=== PATIENT | female | born 1990 | race Caucasian/White ===

== ENCOUNTER → 2024-02-13 08:56 | Outpatient (REF) | payer OTHER, SELFPAY | LOC: RAD 08:56 | PROVIDERS: ATTENDING PHYSICIAN Nurse Practitioner Family; FAMILY PHYSICIAN Internal Medicine | DX: Z32.01 Encounter for pregnancy test, result positive (principal) | CPT/HCPCS: 76801; 76817 ==

== ENCOUNTER → 2024-03-18 10:16 | Outpatient (REF) | payer OTHER, SELFPAY | LOC: PNTC 10:16 | PROVIDERS: ATTENDING PHYSICIAN Student in an Organized Health Care Education/Training Program | DX: Z36.0 Encounter for antenatal screening for chromosomal anomalies (principal); Z36.82 Encounter for antenatal screening for nuchal translucency | CPT/HCPCS: 76801; 76813 ==

== ENCOUNTER → 2024-05-06 09:23 | Outpatient (REF) | payer OTHER, SELFPAY | LOC: PNTC 09:23 | PROVIDERS: ATTENDING PHYSICIAN Student in an Organized Health Care Education/Training Program | DX: Z36.0 Encounter for antenatal screening for chromosomal anomalies (principal) | CPT/HCPCS: 76805 ==

== ENCOUNTER → 2024-09-29 09:22 | Outpatient (REF) | payer OTHER, SELFPAY | LOC: PNTC 09:22 | PROVIDERS: ATTENDING PHYSICIAN Student in an Organized Health Care Education/Training Program | DX: O48.0 Post-term pregnancy (principal) | CPT/HCPCS: 59025; 76815 ==

== ENCOUNTER 2024-10-02 19:40 | Inpatient (IN) | payer OTHER, SELFPAY ==
[2024-10-02 19:50] VITALS: BMI 31.6
[2024-10-02 20:12] VITALS: BP 127/96
[2024-10-02] MEDS: LR 1000 IV (20:14)
[2024-10-02 20:31] LABS: Hematocrit 35.9 % (37.0-47.0); Hemoglobin 12.6 g/dL (12.0-16.0); Mean Corp Hgb Conc. 35.1 g/dL (33.0-37.0); Mean Corpuscular Volume 84.9 fL (81.0-99.0); Nucleated Red Blood Cells % 0 %; Platelet Count 190 10^3/uL (130-400); Red Cell Dist. Width 12.9 % (11.5-14.5)
[2024-10-02 21:58] LABS: ALT (SGPT) 18 U/L (0-35); AST (SGOT) 27 U/L (14-36); Albumin 3.8 g/dl (3.5-5.0); Alkaline Phosphatase 108 U/L (38-126); Blood Urea Nitrogen 13 mg/dl (7-17); Calcium 9.3 mg/dl (8.4-10.2); Carbon Dioxide 20 mmol/L (22-30); Chloride 106 mmol/L (98-107); Estimated Creatinine Clearance 105 ml/min; Glucose 87 mg/dl (70-99); Potassium 4.2 mmol/L (3.5-5.1); Sodium 133 mmol/L (135-145); Total Protein 6.5 g/dl (6.3-8.2); eGFR > 60.00
[2024-10-03] MEDS: LR 1000 IV (01:05)
[2024-10-03] MEDS: PITOCIN 30 UNITS/NSS 500 ML IV ×2 (03:05→03:50)
[2024-10-03] MEDS: XYLOCAINE-MPF 1% VIAL 10 ML INFIL (03:50)
[2024-10-03] MEDS: MOTRIN 600 MG PO ×3 (04:46→21:22)
[2024-10-03] MEDS: TYLENOL 650 MG PO ×3 (04:47→21:22)
[2024-10-03] MEDS: COLACE PO (19:10)
[2024-10-03] MEDS: PRENATAL PLUS PO (19:11)
[2024-10-03] MEDS: COLACE 100 MG PO (21:22)
[2024-10-04] MEDS: TYLENOL 650 MG PO ×2 (04:14→11:05)
[2024-10-04] MEDS: MOTRIN 600 MG PO ×2 (04:14→11:06)
[2024-10-04 05:50] LABS: Hematocrit 32.7 % (37.0-47.0); Hemoglobin 11.3 g/dL (12.0-16.0)
[2024-10-04] MEDS: PRENATAL PLUS 1 TABLET PO (08:42)
[2024-10-04] MEDS: COLACE 100 MG PO (08:42)
[2024-10-07 12:56] LABS: Syphilis/T. pallidum Ab Reflex Negative (Negative)
== END 2024-10-04 18:01 | disposition home or self-care (01) | DRG 807 ==
LOC: LDRP 19:40
PROVIDERS: ADMITTING PHYSICIAN Obstetrics & Gynecology; FAMILY PHYSICIAN Hospitalist
PROC: 10E0XZZ Delivery of Products of Conception, External Approach (ICD-10-PCS; 2024-10-03)
PROC: 0KQM0ZZ Repair Perineum Muscle, Open Approach (ICD-10-PCS; 2024-10-03)
DX: O48.0 Post-term pregnancy (principal); Z37.0 Single live birth; Z3A.41 41 weeks gestation of pregnancy; O70.1 Second degree perineal laceration during delivery; O77.0 Labor and delivery complicated by meconium in amniotic fluid
CPT/HCPCS: 36415; 80053; 85014; 85018; 85025; 86780; 86850; 86900; 86901; 87491; 87591